=== PATIENT | female | born 1955 | race Two or more races ===

== ENCOUNTER 2021-03-23 06:00 | Day surgery (SDC) | payer OTHER ==
[~2021-03-23 06:00] MED LIST: AMLODIP PO; ANTIVERT25 M1 PO
== END 2021-03-23 15:40 | disposition home or self-care (01) ==
LOC: CIR.AMB 06:00
PROVIDERS: ATTEND Urology
DX: N20.0 Calculus of kidney (principal); Z20.822 Contact with and (suspected) exposure to COVID-19

== ENCOUNTER 2022-04-14 11:27 | Emergency (ER) | payer OTHER ==
[~2022-04-14] VITALS: Ht 149.9 cm; Wt 68.0 kg
[2022-04-14] MEDS ORDERED: AMLOD-VALSA-HC1 EACH PO (11:43)
[2022-04-14] MEDS ORDERED: SIMVASTATIN5 MG PO (11:44)
== END 2022-04-14 13:19 | disposition home or self-care (01) ==
LOC: ER 11:27
DX: S90.822A Blister (nonthermal), left foot, initial encounter (principal); I10 Essential (primary) hypertension

== ENCOUNTER 2022-06-09 09:29 | Emergency (ER) | payer OTHER ==
[~2022-06-09] VITALS: Ht 149.9 cm; Wt 68.0 kg
[~2022-06-09 09:29] MED LIST changes: +AMLOD-VALSA-HC1 EACH PO; +SIMVASTATIN5 MG PO
[2022-06-09] MEDS ORDERED: MEDROLPACK PO (11:33)
[2022-06-09] MEDS ORDERED: ZITHROMAX500 MG PO (11:33)
== END 2022-06-09 12:50 | disposition home or self-care (01) ==
LOC: ER 09:29
DX: U07.1 COVID-19 (principal); I10 Essential (primary) hypertension